=== PATIENT | female | born 1965 | race Caucasian/White ===

== ENCOUNTER 2018-04-29 10:22 | Emergency (ER) | payer BC, OTHER ==
[2018-04-29 10:39] VITALS: BP 121/81; PULSE 89; TEMP 98.2; BMI 36.9
[2018-04-29] MEDS ORDERED: KETOROLAC TROMETHAMINE 60 MG/2 ML VIAL IM ONE (11:58)
[2018-04-29] MEDS ORDERED: KETOROLAC TROMETHAMINE 60 MG/2 ML VIAL ONE (12:02)
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
== END 2018-04-29 13:34 | disposition home or self-care (01) ==
LOC: JERFT 10:22
PROC: 3E0233Z Introduction of Anti-inflammatory into Muscle, Percutaneous Approach (ICD-10-PCS; principal; 2018-04-29)
DX: S43.402A Unspecified sprain of left shoulder joint, initial encounter (principal); S13.4XXA Sprain of ligaments of cervical spine, initial encounter; M62.838 Other muscle spasm; V43.52XA Car driver injured in collision with other type car in traffic accident, initial encounter; Y93.89 Activity, other specified; Y92.410 Unspecified street and highway as the place of occurrence of the external cause
CPT/HCPCS: 72125-TC; 72131-TC; 99281-25

== ENCOUNTER 2018-06-28 08:16 | Emergency (ER) | payer OTHER, BC ==
[2018-06-28 08:47] VITALS: BP 116/76; PULSE 88; TEMP 98.9; BMI 33.8
[2018-06-28] MEDS ORDERED: IBUPROFEN 600 MG TABLET (FP) PO ONE ×2 (09:47→10:08)
--- NOTE | 2018-06-28 09:47 | PDOC ---
History of Present Illness - General Chief Complaint: Pain, Acute Stated Complaint: FALL Time Seen by Provider: 06/28/18 08:32 - History of Present Illness Initial Comments: 06/28/18 09:52 Chief complaint: Pain right shoulder History of present illness: Patient slipped on ice last night, fell to the ground, injuring her right shoulder. Complains of pain with abduction. History of shoulder injury with surgery, chronic pain with radiculopathy. This seems to be aggravated now. Review of systems: Also complains of minor injuries to the right hand, right hip , and both knees. She has had ligament surgery in both knees and has chronic pain, but this also seems to be aggravated, especially on the right. She is ambulating adequately. She has been taking oxycodone. Past medical history: Chronic pain as noted in the right shoulder, neck, legs, and knees. Peripheral neuropathy in the legs evaluated by neurologist and requiring medication. 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 Gastric band. Postmenopausal Social/family history denies tobacco alcohol or drugs. Moderately active. Stable home and family Physical exam: Alert and oriented well-developed well-nourished no acute distress cheerful and cooperative Afebrile, vital signs normal Head atraumatic. PERRLA, fundi benign, ENT clear Neck without point tenderness or deformity over the cervical vertebrate. Good range of motion without significant pain Chest clear to P&A with full breath sounds bilaterally. No rib cage or chest wall deformity or tenderness CV S1 and S2 normal without murmur rub or gallop pulses full and symmetric no JVD or edema no bruits Abdomen soft nontender without mass or organomegaly. No CVAT Lumbosacral spine and pelvis without point tenderness or deformity Neurological C2 to 12 intact except for minor weakness of the eye muscles due to prior strabismus surgery. Strength full and symmetric. No focal sensory or motor deficits. Gait stable and unimpaired Extremities: There is mild diffuse tenderness over the entire right shoulder girdle. There appears to be chronic synovial thickening but no acute swelling, erythema, or heat. Range of motion is good. No distal sensory or motor deficits. Full range of motion without limitation right hip. No deformity or bruising Chronic synovial thickening bilateral knees. No erythema or warmth. Ligaments appear intact and no injury to the patella and patellar retinaculum. No joint space tenderness. Impression: Multiple minor injuries, contusions and muscle strain. No sign of acute fracture. Plan: X-ray of the right shoulder due to prior disease. Otherwise rest heat ice and anti-inflammatory muscle relaxant and orthopedic follow-up as directed. Past History - Past Medical History Allergies/Adverse Reactions: Allergies Allergy/AdvReac Type Severity Reaction Status Date / Time penicillamine Allergy Verified 06/28/18 08:41 Sulfa (Sulfonamide Allergy Verified 06/28/18 08:41 Antibiotics) Home Medications: Ambulatory Orders Methocarbamol [Robaxin -] 500 mg PO TID #21 tablet 04/29/18 Oxycodone HCl/Acetaminophen [Percocet 5-325 mg Tablet] 1 tab PO Q6H PRN #8 tablet MDD 3 04/29/18 Pantoprazole Sodium [Protonix -] 40 mg PO DAILY 04/29/18 Quetiapine Fumarate [Seroquel -] 300 mg PO HS 04/29/18 Zolpidem Tartrate [Ambien] 5 mg PO ASDIR 04/29/18 clonazePAM [Klonopin -] 0.5 mg PO ASDIR 04/29/18 traZODone HCL [Trazodone HCl] 100 mg PO ASDIR 04/29/18 Cyclobenzaprine HCl [Flexeril] 10 mg PO TID PRN #10 tablet 06/28/18 COPD: No Hypercholesterolemia: Yes Psychiatric Problems: Yes (bipolar, anxiety) - Surgical History Abdominal Surgery: Yes (gastric sleeve) - Immunization History Immunization Up to Date: No - Suicide/Smoking/Psychosocial Hx Smoking History: Current every day smoker Have you smoked in the past 12 months: No Information on smoking cessation initiated: Yes Hx Alcohol Use: No Drug/Substance Use Hx: No *Physical Exam - Vital Signs Last Vital Signs Temp Pulse Resp BP Pulse Ox 98.9 F 88 17 116/76 100 06/28/18 08:36 06/28/18 08:36 06/28/18 08:36 06/28/18 08:36 06/28/18 08:36 Moderate Sedation - Procedure Monitoring Vital Signs: Procedure Monitoring Vital Signs Temperature 98.9 F 06/28/18 08:36 Pulse Rate 88 06/28/18 08:36 Respiratory Rate 17 06/28/18 08:36 Blood Pressure 116/76 06/28/18 08:36 O2 Sat by Pulse Oximetry (%) 100 06/28/18 08:36 ED Treatment Course - RADIOLOGY Radiology Studies Ordered: Category Date Time Status SHOULDER-RIGHT [RAD] Stat Radiology 06/28/18 09:39 Ordered Medical Decision Making - Medical Decision Making 06/28/18 10:22 Shoulder x-ray is negative. To maintain gentle range of motion to avoid stiffness. Follow-up orthopedist. *DC/Admit/Observation/Transfer Diagnosis at time of Disposition: Sprain of right shoulder Qualifiers: Encounter type: initial encounter Shoulder sprain type: unspecified sprain Qualified Code(s): S43.401A - Unspecified sprain of right shoulder joint, initial encounter - Discharge Dispostion Disposition: HOME Condition at time of disposition: Stable Decision to Admit order: No - Prescriptions Prescriptions: Cyclobenzaprine HCl [Flexeril] 10 mg PO TID PRN #10 tablet PRN Reason: muscle tightness /spasm - Referrals Referrals: Jeremy Bryant MD [Staff Physician] - - Patient Instructions Printed Discharge Instructions: DI for Shoulder Sprain Additional Instructions: Maintain motion to avoid stiffness. Medication as directed. Use intermittent ice to the knees and hip, as well as the shoulder, as needed. See orthopedist if pain persists for further evaluation and treatment. - Post Discharge Activity
[2018-06-28] MEDS ORDERED: ACETAMINOPHEN 325 MG TABLET (FP) ONE (10:10)
[2018-06-28] MEDS ORDERED: ACETAMINOPHEN 325 MG TABLET (FP) PO ONE (10:11)
== END 2018-06-28 10:28 | disposition home or self-care (01) ==
LOC: FER 08:16
DX: S43.401A Unspecified sprain of right shoulder joint, initial encounter (principal); W00.0XXA Fall on same level due to ice and snow, initial encounter; Y93.89 Activity, other specified; Y92.410 Unspecified street and highway as the place of occurrence of the external cause; F17.210 Nicotine dependence, cigarettes, uncomplicated; Z98.84 Bariatric surgery status; F31.9 Bipolar disorder, unspecified; E78.00 Pure hypercholesterolemia, unspecified
CPT/HCPCS: 73030-TC-RT-FY; 99281-25

== ENCOUNTER 2021-06-01 11:21 | Emergency (ER) | payer OTHER ==
[2021-06-01 11:41] VITALS: BP 127/76; PULSE 74; TEMP 98.7; BMI 29.2
[2021-06-01] MEDS ORDERED: KETOROLAC TROMETHAMINE 30 MG/1 ML VIAL IM ONE (11:41)
[2021-06-01] MEDS ORDERED: ACETAMINOPHEN 325 MG TABLET (FP) PO ONE (11:41)
[2021-06-01] MEDS ORDERED: ACETAMINOPHEN 325 MG TABLET (FP) ONE (11:45)
[2021-06-01] MEDS ORDERED: KETOROLAC TROMETHAMINE 30 MG/1 ML VIAL ONE (11:45)
== END 2021-06-01 13:58 | disposition home or self-care (01) ==
LOC: FER 11:21
PROC: 3E023NZ Introduction of Analgesics, Hypnotics, Sedatives into Muscle, Percutaneous Approach (ICD-10-PCS; principal; 2021-06-01)
DX: R51.9 Headache, unspecified (principal); M79.10 Myalgia, unspecified site
CPT/HCPCS: 70450-TC; 72125-TC; 99285-25